=== PATIENT | female | born 1995 | race Caucasian/White ===

== ENCOUNTER 2016-05-05 17:21 | Outpatient (CLI) | payer OTHER ==
[2016-05-05 18:33] VITALS: BMI 39.1
== END 2016-05-05 18:51 | disposition home or self-care (01) ==
LOC: FBCOUT 17:21 → FBC 17:22 → FBCOUT 18:51
PROVIDERS: ATTEND Obstetrics & Gynecology
DX: O26.899 Other specified pregnancy related conditions, unspecified trimester (principal); R10.33 Periumbilical pain; Z3A.00 Weeks of gestation of pregnancy not specified
CPT/HCPCS: 59025; 81002; G0463

== ENCOUNTER 2016-06-22 13:08 | Outpatient (CLI) | payer OTHER ==
[2016-06-22 13:55] VITALS: BMI 38.7
== END 2016-06-22 14:15 | disposition home or self-care (01) ==
LOC: FBCOUT 13:08 → FBC 13:13 → FBCOUT 14:15
PROVIDERS: ATTEND Obstetrics & Gynecology
DX: O26.899 Other specified pregnancy related conditions, unspecified trimester (principal); R25.2 Cramp and spasm; N36.8 Other specified disorders of urethra; Z3A.00 Weeks of gestation of pregnancy not specified

== ENCOUNTER 2016-07-07 12:11 | Outpatient (CLI) | payer OTHER | END 2016-07-07 13:30 | disposition home or self-care (01) | LOC: FBCOUT 12:11 → FBC 12:12 → FBCOUT 13:30 | PROVIDERS: ATTEND Obstetrics & Gynecology | DX: O76 Abnormality in fetal heart rate and rhythm complicating labor and delivery (principal); Z3A.00 Weeks of gestation of pregnancy not specified ==

== ENCOUNTER 2016-07-08 08:12 | Inpatient (IN) | payer OTHER ==
--- NOTE | 2016-07-07 18:00 | HP ---
MICHELLE MARQUEZ [id number] DATE OF ADMISSION: July 08, 2016 ADMITTING DIAGNOSES: 1. Term . 2. Elective induction of labor. HISTORY OF PRESENT ILLNESS: Patient is a 21-year-old 2, para 1, 0/0/1, with estimated delivery date of July 05, 2016. The patient presents at 40 weeks plus three days for elective induction of labor at term. Patient has had an uncomplicated course. She was dated by an eight-week ultrasound. Patient has had a previous history of gestational diabetes with her first and initial one-hour glucose testing was normal. A repeat glucose testing at 28 weeks was elevated however, her three-hour sugar test was also normal. Patient has had anatomy ultrasound at 21 weeks which showed a normal anatomic survey. Of note, initial ultrasound at eight weeks did have a vanishing twin. However, at the 20 week anatomy ultrasound this had resolved. Patient did have recent history of passing a urinary calculus. PAST [employer] HISTORY: Patient has had one prior normal vaginal delivery. This was a diet controlled gestational diabetes. Baby was 8 pounds 9 ounces. 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 PAST MEDICAL HISTORY: Patient has had a history of diet controlled gestational diabetes and kidney stones. PHYSICAL EXAM: GENERAL: Patient is alert and appropriate in no apparent distress. HEART: Regular rate and rhythm. LUNGS: Clear to auscultation bilaterally. ABDOMEN: Gravid, with estimated weight of 4000 grams. PELVIC: Cervix is 2 to 3 cm dilated, 80% effaced, and -2 station in cephalic presentation. Membranes are intact. ASSESSMENT AND PLAN: This is a 21-year-old 2, para 1, at 40 weeks plus 3 days. Patient had requested elective induction of labor at term. Her cervix is dilated at 2 to 3 cm at this time and favorable. Induction risks including hyperstimulation, section and infection have been reviewed and the procedure has been reviewed. Her group B streptococcus status is negative. We will start Pitocin upon admission. Of note, patient was sent to [facility] for extended monitoring a day prior to admission and this showed reactive and reassuring heart tracing.
[2016-07-08] MEDS ORDERED: OXYTOCIN IN LR 500 ML IV PRN (08:26)
[2016-07-08] MEDS ORDERED: OXYTOCIN 10 UNITS/ML VIAL ONE (08:36)
[2016-07-08] MEDS ORDERED: IV START KIT ONE (08:36)
[2016-07-08] MEDS ORDERED: MINERAL OIL 25 ML BOT ONE (08:36)
[2016-07-08] MEDS ORDERED: LIDOCAINE 1% (PRES FREE) 30 ML VIAL ONE (08:37)
[2016-07-08] MEDS ORDERED: PUMP TUBING ONE (08:37)
[2016-07-08] MEDS ORDERED: LIDOCAINE Viscous 2% 15 ML UDCUP ONE (08:37)
[2016-07-08] MEDS ORDERED: OXYTOCIN IN LR 500 ML IV ONE (09:25)
[2016-07-08 09:40] LABS: HEMATOCRIT 33.6 % (37.0-47.0); MEAN CELL VOLUME 76.5 fl (81.0-99.0); MEAN CORPUSCULAR HEMOGLOBIN 25.1 pg (27.0-31.0); MEAN CORPUSCULAR HGB CONC 32.7 g/dl (33.0-37.0); RED CELL DISTRIBUTION WIDTH 14.8 % (11.5-14.5)
--- NOTE | 2016-07-08 14:34 | PDOC36 ---
Provider Note Subject: Patient starting to feel uncomfortable. Requesting epidural VSS SVE 5-6/90/-2, AROM, scant clear fluid FHT: 140/mod/+accels/-decels [place]: q5-8 A/P 21 yo @40.3 eIOL Patient progressing on her own. Will start pitocin if contrations space out. Epidural requested FHT cat I since admission GBS negative
[2016-07-08] MEDS: LACTATED RINGERS 1,000 ML IV SCH ×3 (14:37→17:10)
[2016-07-08] MEDS ORDERED: EPIDURAL PUMP SET ONE (14:51)
[2016-07-08] MEDS ORDERED: FENTANYL/ROPIVACAINE EPIDURAL 250 ML EP ONE (14:52)
[2016-07-08] MEDS: FENTANYL/ROPIVACAINE EPIDURAL 250 ML EP SCH (15:30)
[2016-07-08] MEDS ORDERED: ROPIVACAINE 0.5% 30 ML VIAL ONE (16:10)
[2016-07-08] MEDS ORDERED: NALBUPHINE HCL 20 MG/ML AMP IV PRN (16:28)
[2016-07-08] MEDS ORDERED: NALOXONE HCL 0.4 MG/ML VIAL IV PRN (16:28)
[2016-07-08] MEDS ORDERED: SODIUM CHLORIDE 0.9% 500 ML IV PRN (16:28)
[2016-07-08] MEDS ORDERED: METOCLOPRAMIDE HCL 5 MG/ML 2ML VIAL IV PRN (16:28)
[2016-07-08] MEDS ORDERED: EPHEDRINE SULFATE 50 MG/ML 1ML VIAL IV PRN (16:28)
[2016-07-08] MEDS ORDERED: LACTATED RINGERS 1,000 ML IV SCH (16:28)
[2016-07-08] MEDS ORDERED: DIPHENHYDRAMINE HCL 50 MG/1 ML VIAL IV PRN (16:28)
[2016-07-08] MEDS ORDERED: LACTATED RINGERS 500 ML IV PRN (16:28)
[2016-07-08] MEDS ORDERED: ONDANSETRON 4 MG/2ML 2 ML VIAL IV PRN (16:28)
--- NOTE | 2016-07-08 17:10 | PDOC36 ---
Provider Note Subject: Patient feeling comfortably numb after epidural VSS SVE 6-7/90/-1 per RN [id number]/mod/+accels/-decels [place] q 5-7 A/P 21 yo @40.3, elective IOL comfortable after epidural Continuing to make cervical change without augmentation despite infrequent contractions. Continue to monitor closely. Pitocin if she stops making cervical change. S/P AROM, clear. GBS neg.
[2016-07-08 17:44] VITALS: BMI 40.1
[2016-07-08] MEDS ORDERED: LIDOCAINE 1% (PRES FREE) 30 ML VIAL SUB-Q ONE (20:12)
--- NOTE | 2016-07-08 20:22 | PCMDEL ---
Delivery Note - Labor 1st stage (hr/min):: 1430 2nd stage (hr/min):: 2002 3rd stage (hr/min):: 2007 Pushed (hr/min):: 24 m - Delivery Delivery (Date): 07/08/16 Delivery (Time): 20:03 Gender: Female Presentation: Cephalic Position: OA Umbilical Cord: 3 Vessel, Nuchal Cord Delayed Cord Clamping:: < 1-2 min 1 Minute Total: 8 5 Minute Total: 9 Placenta:: intact, spontaneous EBL:: 100 Perineum:: 2nd degree Suture:: 2-0 vicryl Anesthesia/Meds:: epidural Length ROM:: 5hrs
[2016-07-08] MEDS ORDERED: SENNOSIDES 8.6 MG TABLET PO PRN (20:46)
[2016-07-08] MEDS ORDERED: BENZOCAINE/MENTHOL 60 APPLIC/BOT TP PRN (20:46)
[2016-07-08] MEDS ORDERED: ACETAMINOPHEN 325 MG TABLET PO PRN (20:46)
[2016-07-08] MEDS ORDERED: OXYCODONE/ACETAMINOPHEN 5/325 MG TABLET PO PRN (20:46)
[2016-07-08] MEDS ORDERED: LANOLIN 50 APPLIC/7G TUBE TP PRN (20:46)
[2016-07-08] MEDS ORDERED: DOCUSATE SODIUM 100 MG CAPSULE PO PRN (20:46)
[2016-07-08] MEDS: IBUPROFEN 800 MG TABLET PO PRN (22:02)
[2016-07-09] MEDS: IBUPROFEN 800 MG TABLET PO PRN ×3 (05:00→18:19)
[2016-07-09 07:04] LABS: HEMATOCRIT 30.3 % (37.0-47.0); HEMOGLOBIN 9.9 gm/l (12.0-16.0)
--- NOTE | 2016-07-09 07:30 | PDOC44 ---
- Subjective Day: 1 (offers no complaints) Reports Pain Tolerable, Reports , Reports Lochia Light, Reports Tolerating Regular Diet, Denies Vomiting, Denies Fever - Objective Temp Pulse Resp BP Pulse Ox 98.6 F 90 18 114/59 07/09/16 01:45 07/09/16 01:45 07/09/16 01:45 07/09/16 01:45 Lab Results 07/09/16 07/08/16 06:10 08:45 WBC 11.1 H RBC 4.39 Hgb 9.9 L 11.0 L Hct 30.3 L 33.6 L Plt Count 179 07/08/16 08:45 MCV 76.5 L MCH 25.1 L MCHC 32.7 L RDW 14.8 H Current Medications Generic Name Dose Route Start Last Admin Trade Name Freq PRN Reason Stop Dose Admin Acetaminophen 325 - 650 mg 07/08/16 20:46 Tylenol PO Q4H PRN Pain (Mild) Benzocaine/Menthol 1 applic 07/08/16 20:46 07/08/16 22:02 Dermoplast TP 1 bot PRN PRN Administration Patient Comfort Docusate Sodium 100 mg 07/08/16 20:46 Colace PO DAILY PRN Comfort Emollient Ointment 1 applic 07/08/16 20:46 [id number] TP PRN PRN sore nipples Ropivacaine/Fentanyl/NS 250 mls @ 0 mls/hr 07/08/16 16:29 07/08/16 15:30 Fentanyl 2 Mcg/Ml + Ropivacaine 0.125% Ep Bag EP 10 mls/hr EPI MARVEL Administration Protocol Per Protocol Ibuprofen 800 mg 07/08/16 20:46 07/09/16 05:00 Motrin PO 800 mg Q6H PRN Administration Pain (Mild) Oxycodone/Acetaminophen 1 - 2 tab 07/08/16 20:46 Percocet 5/325 PO Q4H PRN Pain (Moderate) Senna 17.2 mg 07/08/16 20:46 Senokot PO BEDTIME PRN Comfort Sodium Chloride 10 ml 07/08/16 20:46 07/09/16 05:00 Normal Saline 10ml Flush IV 10 ml PRN PRN Administration IV Flush - Physical Exam General: Afebrile, No Acute Distress Psych/Mental Status: Mood/Affect Appropriate, Judgment/Insight Intact, Bonding Well Breast: Soft, Skin intact, Nipples Intact, No Tenderness, No Erythema, No Engorged Fundus: Firm, Midline, At Umbilicus, Other (nontender) Genitourinary: Other (voiding without difficulty) Lochia: Light - Problems:Assessment/Plan (1) Anemia, Status: Acute Disposition: Stable, Anticipate DC to Home
[2016-07-09] MEDS: FERROUS SULFATE (65 Fe) 325 MG TABLET PO SCH (11:51)
[2016-07-09] MEDS: FENTANYL/ROPIVACAINE EPIDURAL 250 ML EP SCH (18:19)
[2016-07-10] MEDS: IBUPROFEN 800 MG TABLET PO PRN ×3 (00:11→13:00)
[2016-07-10 08:07] VITALS: BP 115/54
[2016-07-10] MEDS: FERROUS SULFATE (65 Fe) 325 MG TABLET PO SCH (08:20)
--- NOTE | 2016-07-10 08:58 | PDOC39B ---
Hospital Course: ADMIT DATE: 07/08/16 DISCHARGE DATE: [07/10/16] ADMISSION DIAGNOSES: [elective IOL] PROCEDURES: [vaginal delivery] HISTORY OF PRESENT ILLNESS: 21 year old G2 T1 L1 at 40 weeks 3 days presenting with [elective IOL] HOSPITAL COURSE: The patient [had an IOL with pitocin and AROM, and proceeded to have a vaginal delivery of a baby girl. She is doing well and is requesting discharge home.] By day of discharge the patient is ambulating, eating, voiding, and passing flatus without difficulty. Pain is controlled and lochia is appropriate. She is [] - Physical Exam Vital Signs: Temp Pulse Resp BP Pulse Ox 98.2 F 76 16 115/54 07/10/16 07:54 07/10/16 07:54 07/10/16 07:54 07/10/16 07:54 General: Afebrile Psych/Mental Status: Mood/Affect Appropriate, Judgment/Insight Intact, Bonding Well Neurological: Grossly Intact, Alert, Oriented x 4 HEENT: Atraumatic, PERRLA, EOMI Lungs: Clear to Auscultation Bilaterally, Normal Air Movement Cardiovascular: Regular Rate and Rhythm, Normal S1, Normal S2 Fundus: Firm, Midline, At Umbilicus Abdomen: Normal Bowel Sounds Genitourinary: Normal Female Genitalia Lochia: Light, Moderate Rectal Exam: Deferred Extremities: Full ROM Skin: Normal Color, Warm, Dry, Intact - Discharge Plan Condition: Stable Disposition: Home Instruction Forms: Vaginal Discharge Instructions
== END 2016-07-10 13:15 | disposition home or self-care (01) | DRG 775 ==
LOC: FBC 08:12
PROVIDERS: ADMIT Obstetrics & Gynecology; ATTEND Obstetrics & Gynecology
PROC: 0KQM0ZZ Repair Perineum Muscle, Open Approach (ICD-10-PCS; principal; 2016-07-08)
PROC: 10E0XZZ Delivery of Products of Conception, External Approach (ICD-10-PCS; 2016-07-08)
DX: O70.1 Second degree perineal laceration during delivery (principal); Z37.0 Single live birth; Z3A.40 40 weeks gestation of pregnancy